=== PATIENT | male | born 1935 | race Caucasian/White ===

== ENCOUNTER 2016-11-18 08:32 | Inpatient (IN) | payer MEDICARE, BC ==
[2016-11-14 15:36] VITALS: BP 147/88
[~2016-11-18] VITALS: Ht 182.9 cm; Wt 81.5 kg
[~2016-11-18 08:32] MED LIST: BACITRACIN 50,000 UNIT ONE; BUPIVACAINE/PF-EPI 0.5% 1:200K ONE; IBUP200T64 PO; LEVO50TA PO; THROMBIN 5,000 UNIT VIAL TP ONE
[2016-11-18] MEDS ORDERED: MIDAZOLAM 1 MG/ML, 2ML ONE ×2 (08:45→11:10)
[2016-11-18] MEDS ORDERED: FENTANYL PF 100 MCG/2ML ONE ×2 (08:45→11:10)
[2016-11-18] MEDS ORDERED: TRANEXAMIC ACID 100 MG/ML, 10ML ONE (08:59)
[2016-11-18] MEDS ORDERED: HYDROmorphone 1 MG/ML, 1ML IV PRN (09:00)
[2016-11-18] MEDS ORDERED: hydrALAzine 20 MG/ML, 1ML IV PRN (09:00)
[2016-11-18] MEDS ORDERED: OXYcodone 5 MG/5 ML ORAL.SOL UDC PO PRN (09:00)
[2016-11-18] MEDS ORDERED: ACETAMINOPHEN 325 MG TABLET PO PRN (09:00)
[2016-11-18] MEDS ORDERED: MIDAZOLAM 1 MG/ML, 2ML IV PRN (09:00)
[2016-11-18] MEDS ORDERED: LABETALOL 5MG/ML, 20ML IV PRN (09:00)
[2016-11-18] MEDS ORDERED: MEPERIDINE/PF 25MG/0.5ML IVPush PRN (09:00)
[2016-11-18] MEDS ORDERED: ONDANSETRON 2MG/ML, 2ML IVPush PRN (09:00)
[2016-11-18] MEDS ORDERED: PROMETHAZINE 25 MG/ML, 1ML IV PRN (09:00)
[2016-11-18] MEDS ORDERED: FENTANYL PF 100 MCG/2ML IV PRN (09:00)
[2016-11-18] MEDS ORDERED: LACTATED RINGERS 1,000 ML IV SCH (09:03)
[2016-11-18] MEDS ORDERED: VANCOMYCIN 1,000 MG ONE (09:20)
[2016-11-18] MEDS ORDERED: NEOSPORIN OINT, 15GM ONE (09:20)
[2016-11-18] MEDS ORDERED: PROPOFOL 10 MG/ML, 20ML ONE (09:21)
[2016-11-18] MEDS ORDERED: CEFAZOLIN 1,000 MG ONE (09:21)
[2016-11-18] MEDS ORDERED: METOCLOPRAMIDE 5 MG/ML, 2ML ONE (09:21)
[2016-11-18] MEDS ORDERED: DEXAMETHASONE 4 MG/ML, 5ML ONE (09:21)
[2016-11-18] MEDS ORDERED: ONDANSETRON 2MG/ML, 2ML ONE (09:21)
[2016-11-18] MEDS ORDERED: ROCURONIUM 10 MG/ML ONE (09:21)
[2016-11-18] MEDS ORDERED: PHENYLEPHRINE 10 MG/ML ONE (09:21)
[2016-11-18] MEDS ORDERED: GLYCOPYRROLATE 0.2MG/1ML ONE ×2 (09:21)
[2016-11-18] MEDS ORDERED: KETAMINE 10 MG/ML, 20ML ONE (09:43)
[2016-11-18] MEDS ORDERED: HYDROmorphone 1 MG/ML, 1ML ONE (09:43)
[2016-11-18] MEDS ORDERED: BACITRACIN 50,000 UNIT ONE (11:33)
[2016-11-18] MEDS ORDERED: OXYcodone 5 MG/5 ML ORAL.SOL UDC ONE (11:39)
[2016-11-18 13:19] VITALS: BP 121/66
[2016-11-18] MEDS ORDERED: METHOCARBAMOL 750 MG TABLET PO PRN (16:30)
[2016-11-18] MEDS ORDERED: ONDANSETRON 2MG/ML, 2ML IV PRN (16:30)
[2016-11-18] MEDS ORDERED: DIPHENHYDRAMINE 50 MG/ML, 1ML IVPush PRN (16:30)
[2016-11-18] MEDS ORDERED: MAGNESIUM HYDROXIDE 8%, 30ML UDC PO PRN (16:30)
[2016-11-18] MEDS ORDERED: HYDROmorphone 2MG TABLET PO PRN (16:30)
[2016-11-18] MEDS ORDERED: OXYcodone/APAP 5/325MG TABLET PO PRN (16:30)
[2016-11-18] MEDS ORDERED: DIPHENHYDRAMINE 50 MG/ML, 1ML IM PRN (16:30)
[2016-11-18] MEDS ORDERED: PROMETHAZINE 25 MG/ML, 1ML IM PRN (16:30)
[2016-11-18] MEDS ORDERED: HYDROmorphone 2 MG/ML, 1ML IM PRN (16:30)
[2016-11-18] MEDS ORDERED: BISACODYL 10 MG SUPP PR PRN (16:30)
[2016-11-18] MEDS ORDERED: DIPHENHYDRAMINE 50 MG CAPSULE PO PRN (16:30)
[2016-11-18] MEDS: CEFAZOLIN PMX 1GM/50ML 50 ML IVPB SCH (17:13)
[2016-11-18] MEDS: NS + 20MEQ KCL 1,000 ML IV SCH (17:14)
[2016-11-18 19:55] VITALS: BP 127/74
[2016-11-18] MEDS ORDERED: ZOLPIDEM 5MG TABLET PO PRN (21:00)
[2016-11-19 00:05] VITALS: BP 121/68
[2016-11-19] MEDS: CEFAZOLIN PMX 1GM/50ML 50 ML IVPB SCH (02:00)
[2016-11-19 03:48] VITALS: BP 136/74
[2016-11-19] MEDS: NS + 20MEQ KCL 1,000 ML IV SCH ×2 (04:46→17:26)
[2016-11-19 06:58] VITALS: BP 125/71
[2016-11-19] MEDS: SENNA/DOCUSATE TABLET PO SCH (08:27)
[2016-11-19] MEDS: HYDROcodone/APAP 5/325 TABLET PO PRN ×3 (10:03→20:04)
[2016-11-19] MEDS ORDERED: HYDR-3240 PO (10:54)
[2016-11-19] MEDS ORDERED: CYCL-259 PO (10:54)
[2016-11-19 13:16] VITALS: BP 105/58
[2016-11-19 20:19] VITALS: BP 142/70
[2016-11-20] MEDS: HYDROcodone/APAP 5/325 TABLET PO PRN ×2 (01:59→05:57)
[2016-11-20 02:35] VITALS: BP 150/75
[2016-11-20 07:55] VITALS: BP 121/76
[2016-11-20] MEDS: SENNA/DOCUSATE TABLET PO SCH (09:11)
== END 2016-11-20 10:14 | disposition home health service (06) | DRG 517 ==
LOC: OUT 08:32 → 4NOR 12:41 → OUT 14:04 → 4NOR 14:04 → OBSVTOIN 17:05 → DCLOUNGE 11-20 09:50
PROVIDERS: ADMIT Neurological Surgery; ATTEND Neurological Surgery
PROC: 01NB0ZZ Release Lumbar Nerve, Open Approach (ICD-10-PCS; principal; 2016-11-18 12:00)
DX: M48.06 Spinal stenosis, lumbar region (principal); M51.16 Intervertebral disc disorders with radiculopathy, lumbar region
CPT/HCPCS: 72100; G0378; J0690; J1100; J1170; J2250; J2270; J2405; J2704; J3010; J3370; J3480; J3490; J2370; J2765

== ENCOUNTER → 2018-01-16 | Outpatient (CLI) | payer OTHER ==
[~2018-01-16] MED LIST changes: -BACITRACIN 50,000 UNIT ONE; -BUPIVACAINE/PF-EPI 0.5% 1:200K ONE; +CYCL-259 PO; +HYDR-3240 PO; -THROMBIN 5,000 UNIT VIAL TP ONE
[2018-01-16 10:49] LABS: BASOPHILS # (AUTO) 0.01 x10^3/uL (0-0.1); BASOPHILS % (AUTO) 0 % (0-1); EOSINOPHILS # (AUTO) 0.13 x10^3/uL (0-0.4); EOSINOPHILS % (AUTO) 3 % (1-7); LYMPHOCYTES % (AUTO) 30 % (22-44); MD NO; MEAN CORPUSCULAR HEMOGLOBIN 32.1 pg (27.5-34.5); MEAN CORPUSCULAR HGB CONC 33.9 g/dL (33.2-36.2); MEAN CORPUSCULAR VOLUME 94.8 fL (81-97); MEAN PLATELET VOLUME 6.6 fL (7.4-10.4); MONOCYTES # (AUTO) 0.55 x10^3/uL (0.2-0.8); MONOCYTES % (AUTO) 11 % (2-9); NEUTROPHILS # (AUTO) 2.78 x10^3/uL (1.8-6.8); NEUTROPHILS % (AUTO) 56 % (42-75); PLATELET COUNT 257 x10^3/uL (130-400)
[2018-01-16 11:01] LABS: ALBUMIN 3.8 g/dL (3.4-5.0); ANION GAP 3 mmol/L (5-15); CALCIUM 8.4 mg/dL (8.5-10.1); CHLORIDE 105 mmol/L (98-107)
[2018-01-16 11:04] LABS: ALANINE AMINOTRANSFERASE 24 U/L (12-78); ALKALINE PHOSPHATASE 49 U/L (45-117); BILIRUBIN,TOTAL 0.5 mg/dL (0.2-1.0); CREATININE 0.86 mg/dL (0.7-1.3); TOTAL PROTEIN 6.9 g/dL (6.4-8.2)
== END | disposition home or self-care (01) ==
LOC: STAR 09:44
PROVIDERS: ATTEND Internal Medicine Cardiovascular Disease
DX: Z01.818 Encounter for other preprocedural examination (principal)
CPT/HCPCS: 36415; 71046; 80053; 85025

== ENCOUNTER 2018-01-20 06:31 | Observation (INO) | payer OTHER ==
[~2018-01-20] VITALS: Ht 175.3 cm; Wt 75.2 kg
[2018-01-20] MEDS ORDERED: CEFAZOLIN PMX 1GM/50ML 50 ML IVPB ONE (07:00)
[2018-01-20] MEDS ORDERED: MIDAZOLAM 1 MG/ML, 5ML ONE (08:02)
[2018-01-20] MEDS ORDERED: FENTANYL PF 100 MCG/2ML ONE (08:02)
[2018-01-20] MEDS ORDERED: CEFAZOLIN 1,000 MG ONE (08:02)
[2018-01-20] MEDS ORDERED: CEFAZOLIN PMX 1GM/50ML 50 ML ONE (08:02)
[2018-01-20] MEDS ORDERED: LIDOCAINE/PF 1%, 30ML ONE (08:02)
[2018-01-20] MEDS ORDERED: HOLD MEDICATION MC PRN (09:30)
[2018-01-20] MEDS ORDERED: ACETAMINOPHEN 325 MG TABLET PO PRN (09:30)
[2018-01-20] MEDS: SODIUM CHLORIDE 0.9% 1,000 ML IV SCH ×3 (09:56→22:42)
[2018-01-20 10:01] VITALS: BP 122/83
[2018-01-20 14:05] VITALS: BP 109/68
[2018-01-20] MEDS: CEFAZOLIN PMX 1GM/50ML 50 ML IVPB SCH ×2 (16:15→23:20)
[2018-01-20 19:40] VITALS: BP 103/61
[2018-01-20] MEDS: SODIUM CHLORIDE FLUSH 10ML SYR IVF SCH (19:50)
[2018-01-21 02:00] VITALS: BP 119/72
[2018-01-21] MEDS ORDERED: LEVOTHYROXINE 50 MCG TABLET PO SCH (06:00)
[2018-01-21] MEDS: SODIUM CHLORIDE 0.9% 1,000 ML IV SCH (06:01)
[2018-01-21 07:22] VITALS: BP 122/84
[2018-01-21 08:48] VITALS: BP 118/65
[2018-01-21] MEDS: SODIUM CHLORIDE FLUSH 10ML SYR IVF SCH (10:08)
[2018-01-21 11:04] VITALS: BP 113/71
[2018-01-21] MEDS ORDERED: NITROGLYCERIN 0.4 MG/SPRAY SL PRN (11:30)
[2018-01-21] MEDS ORDERED: NITROGLYCERIN 0.4 MG BOTTLE (25 TABS) SL PRN (11:30)
== END 2018-01-21 14:50 | disposition home or self-care (01) ==
LOC: CACL 06:31 → INTOOBSV 09:18 → CACL 09:18 → 5SO 09:18
PROVIDERS: ADMIT Internal Medicine Cardiovascular Disease; ATTEND Internal Medicine Cardiovascular Disease
DX: I49.5 Sick sinus syndrome (principal); R07.9 Chest pain, unspecified; I49.8 Other specified cardiac arrhythmias
CPT/HCPCS: 33208; 71045; 93005; 96365; 96366; 99156; 99157; C1779; C1785; C1892; G0378; J0690; J2250; J3010; J3490

== ENCOUNTER → 2018-02-24 | Outpatient (CLI) | payer OTHER ==
[~2018-02-24] MED LIST changes: +REGADENOSON 0.4 MG/5 ML SYRINGE ONE
== END | disposition home or self-care (01) ==
LOC: CFH 12:47
PROVIDERS: ATTEND Internal Medicine Cardiovascular Disease
DX: Z01.810 Encounter for preprocedural cardiovascular examination (principal); R07.9 Chest pain, unspecified
CPT/HCPCS: 78452; 93017; A9502; J2785